=== PATIENT | female | born 1985 | race Caucasian/White ===

== ENCOUNTER → 2017-12-29 15:06 | Outpatient (CLI) | payer BC, SELFPAY ==
[2017-12-29 16:58] LABS: hCG Titer Quant., Serum 466 mIU/mL (<9 non-preg)
== END ==
PROVIDERS: Visit Provider Obstetrics & Gynecology
DX: N91.2 Amenorrhea, unspecified (principal)
CPT/HCPCS: 36415; 84702

== ENCOUNTER → 2017-12-31 14:03 | Outpatient (CLI) | payer BC, SELFPAY ==
[2017-12-31 14:48] LABS: hCG Titer Quant., Serum 1109 mIU/mL (<9 non-preg)
== END ==
PROVIDERS: Visit Provider Obstetrics & Gynecology
DX: N91.2 Amenorrhea, unspecified (principal)
CPT/HCPCS: 36415; 84702

== ENCOUNTER → 2018-01-26 14:35 | Outpatient (CLI) | payer BC, SELFPAY ==
[2018-01-26 15:50] LABS: Absolute Lymphocyte Count 1.66 X10^3/ul (0.83-4.51); Absolute Neutrophil Count 6.2 X10^3/uL (2.0-7.7); Basophil# 0.02 X10^3/uL; Basophil% 0.2 % (0-1); Eosinophil# 0.11 X10^3/uL; Eosinophils% 1.3 % (0-5); Hematocrit 40.8 % (37-47); Hemoglobin 13.6 g/dl (12.0-15.0); Lymphocyte # 1.66 X10^3/ul (4.0); Lymphocyte % 19.6 % (19-41); Mean Corp Hgb Conc 33.3 g/gl (32-36); Mean Corpuscular Hgb 30.4 pg (27.0-32.0); Mean Corpuscular Volume 91.3 fL (81-99); Mean Platelet Vol. 11.1 fl (6.2-12.0); Monocyte# 0.43 X10^3/uL; Monocyte% 5.1 % (0-10); Neutrophil # 6.21 X10^3/uL (2.7-7.7); Neutrophil % 73.6 % (47-70); Platelet Count 230 K/mm3 (150-450); RBC Distribution Width CV 12.8 % (11.6-14.6); RBC Distribution Width SD 41.6 fl (35.1-43.9); Red Blood Count 4.47 M/mm3 (4.2-5.4); White Blood Count 8.5 K/mm3 (4.4-11.0)
[2018-01-26 15:54] LABS: POSITIVE COUNT NO; POSITIVE DIFFERENTIAL NO; POSITIVE MORPHOLOGY NO
[2018-01-26 16:16] LABS: Color, Urine Straw (Yellow); Glucose, Dipstick Normal (Normal); Ketone-Dipstick Negative (Negative); Leukocyte Esterase-Dipstick Negative /ul (Negative); Nitrite-Dipstick Negative (Negative); Occult Blood-Urine Negative /ul (Negative); Protein-Dipstick Negative (Negative); Urine Bilirubin Dipstick Negative (Negative); Urine Clarity Clear (Clear); Urine Urobilinogen Normal (Normal)
[2018-01-26 16:19] LABS: Thyroid Stim Hormone (TSH) 2.24 uIU/mL (0.358-3.74)
[2018-01-26 22:01] LABS: Chlamydia Trachomatis by PCR Negative (Negative); Neisserai gonorrhoeae by PCR Negative (Negative); Probe Check PASS; Sample Adequacy Control PASS; Specimen Processing Control PASS
[2018-01-27 09:49] LABS: HIV - WCH Non-Reactive (Nonreactive); Rubella IgG 94.8 IU/mL
[2018-01-28 08:52] LABS: HEPATITIS B SURFACE AG Negative (Negative); Hep C Antibodies <0.1 s/co ratio (0.0-0.9)
[2018-01-29 05:01] LABS: Prenatal RPR NONREACTIVE (NONREACTIVE)
== END ==
PROVIDERS: Visit Provider Obstetrics & Gynecology
DX: Z34.81 Encounter for supervision of other normal pregnancy, first trimester (principal)
CPT/HCPCS: 36415; 81002; 84443; 85025; 86703; 86762; 86803; 87340; 87491; 87591

== ENCOUNTER → 2018-06-03 11:11 | Outpatient (CLI) | payer BC, SELFPAY ==
[2018-06-03 14:03] LABS: Hematocrit 31.3 % (37-47); Hemoglobin 10.3 g/dl (12.0-15.0); Mean Corp Hgb Conc 32.9 g/gl (32-36); Mean Corpuscular Hgb 31.8 pg (27.0-32.0); Mean Corpuscular Volume 96.6 fL (81-99); Mean Platelet Vol. 10.3 fl (6.2-12.0); Platelet Count 169 K/mm3 (150-450); RBC Distribution Width CV 12.6 % (11.6-14.6); RBC Distribution Width SD 42.5 fl (35.1-43.9); Red Blood Count 3.24 M/mm3 (4.2-5.4); White Blood Count 6.2 K/mm3 (4.4-11.0)
[2018-06-03 14:04] LABS: Glucose Challenge Gest 1H 50g 106 mg/dL (70-140); Scan Indicated on CBC? Y/N NO
== END ==
PROVIDERS: Visit Provider Obstetrics & Gynecology
DX: Z34.82 Encounter for supervision of other normal pregnancy, second trimester (principal)
CPT/HCPCS: 36415; 82950; 85027

== ENCOUNTER → 2018-08-05 13:33 | Outpatient (CLI) | payer BC, SELFPAY ==
[2018-08-05 14:51] LABS: Group B Strep DNA By PCR Negative (Negative); Internal Control PASS; Probe Check PASS; Specimen Processing Control PASS
== END ==
PROVIDERS: Visit Provider Obstetrics & Gynecology
DX: Z36.85 Encounter for antenatal screening for Streptococcus B (principal)
CPT/HCPCS: 87081; 87653

== ENCOUNTER 2018-08-11 10:00 | Outpatient (CLI) | payer BC, SELFPAY ==
[2018-08-11 10:29] VITALS: BMI 30.5
--- NOTE | 2018-08-11 17:58 | OB.TRI.NOTE ---
History of Present Illness Date of Service: 08/11/18 Was patient seen by the physician?: Yes Reason For Visit: FALL Date of Service: 08/11/18 Final JULIUS: 09/02/18 Final JULIUS Source: US <20 weeks Gestational age: 36 Weeks and 6 Days History of Present Illness: Lily fell at home today from bottom two stairs over a baby gate. Groin contacted top of gate. Abdomen not injured in accident. No bleeding since. Good movement. Few contractions but not strongly felt. 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 No signs of active labor or abruption. Will followup in the office or return if labor symptoms increase.
--- NOTE | 2018-08-11 18:02 | OB.TRI.HP_ITS ---
History of Present Illness Date of Service: 08/11/18 Was patient seen by the physician?: Yes Reason For Visit: FALL Date of Service: 08/11/18 Final JULIUS: 09/02/18 Final JULIUS Source: US <20 weeks Gestational age: 36 Weeks and 6 Days History of Present Illness: Lily fell at home today from bottom two stairs over a baby gate. Groin contacted top of gate. Abdomen not injured in accident. No bleeding since. Good movement. Few contractions but not strongly felt. Allergies No Known Allergies Allergy (Verified 08/11/18 10:29) Physical Exam General: Alert, Oriented x3, Cooperative, No apparent distress Lungs: Clear to auscultation, Normal air movement Abdomen: Soft, Non Tender, Gravid, Appropriate for Gestational Age Extremities:: No edema Neurological: Neuro grossly intact PRODUCT CONSULTANT: Normal external genitalia - right labia swollen but no skin tears Estimated gestational size: Appropriate for gestational size Presentation: Cephalic NST - FHR Rate Baby A Baseline: 150s Variability:: Moderate Accelerations:: 15 x 15 Decelerations:: None NST Reactive:: Yes, Appropriate for gestational age FHR Category:: Category I Uterine Activity:: irregular Impression/Plan S/P fall. No signs of active labor or abruption. Will followup in the office or return if labor symptoms increase.
== END 2018-08-11 12:35 | disposition home or self-care (01) ==
LOC: WPOUT 10:13 → WP 10:14
PROVIDERS: Referring Provider Obstetrics & Gynecology; Visit Provider Obstetrics & Gynecology
DX: O99.89 Other specified diseases and conditions complicating pregnancy, childbirth and the puerperium (principal); W18.09XA Striking against other object with subsequent fall, initial encounter; Y92.009 Unspecified place in unspecified non-institutional (private) residence as the place of occurrence of the external cause; Z3A.36 36 weeks gestation of pregnancy
CPT/HCPCS: 59025; 59050; 99218; G0378

== ENCOUNTER 2018-08-30 20:24 | Inpatient (IN) | payer BC, SELFPAY ==
[2018-08-30 21:26] VITALS: BMI 31.2
[2018-08-30] MEDS: Lactated Ringers 1,000 ML 50 ML IV (21:28)
[2018-08-30] MEDS: 0.9% Saline Lock 10 ML Syringe IV (21:53)
[2018-08-30 22:17] LABS: Hemoglobin 10.8 g/dl (12.0-15.0); Mean Corp Hgb Conc 32.7 g/gl (32-36); Mean Corpuscular Hgb 30.8 pg (27.0-32.0); Mean Platelet Vol. 10.5 fl (6.2-12.0); Platelet Count 164 K/mm3 (150-450); RBC Distribution Width CV 13.6 % (11.6-14.6); RBC Distribution Width SD 44.9 fl (35.1-43.9); Red Blood Count 3.51 M/mm3 (4.2-5.4); White Blood Count 7.7 K/mm3 (4.4-11.0)
[2018-08-30 22:23] LABS: Scan Indicated on CBC? Y/N NO
[2018-08-30] MEDS: Oxytocin 30 units/NS 500 ml 30 UNITS/500 ML IV.SOLN 334 UNITS IV (23:23)
--- NOTE | 2018-08-30 23:34 | PCM.OB.VAG ---
Vaginal Delivery Maternal Presentation: Active Labor Amniotic Membrane Rupture Type: Spontaneous Amniotic Fluid Description: Clear Final JULIUS: 09/02/18 Final JULIUS Source: US <20 weeks Gestational age: 39 Weeks and 4 Days Date of Procedure: 08/30/18 Pre-Operative Diagnosis: IUP Post-Operative Diagnosis: IUP Surgery/ Procedure Performed: Spontaneous Vaginal Delivery Type of Anesthesia: None Description of Procedure: Spontaneous vaginal delivery of a viable male with Apgars of 8/9 from an occiput anterior presentation with clear amniotic fluid and normal three-vessel placenta. No episiotomy. First-degree midline laceration repaired with 3-0 Vicryl suture. Sponge counts okay. Delivery physician: Kenny Quigley MD. Presentation: Vertex Placental Delivery Description: Spontaneous Placenta Disposition: [facility] Cord Vessel Description: 3 Vessels Cord Gases drawn per routine: ABG Cord Entanglement: None Estimated Blood Loss: 250 cc Infant A gender: Male (1 minute): 8 (5 minute): 9 Episiotomy Description: None Laceration: Midline, Perineal Extension/lac, 1st degree Medications given after delivery: IV Pitocin Complications: None
--- NOTE | 2018-08-30 23:36 | PCM.DCVAG ---
Discharge Diet: No Restrictions Discharge Activity: May Shower, May Take a Tub Bath May resume sexual activity in: 4-6 weeks Additional Activity Instructions:: Nothing in the vagina for 4-6 weeks. You may return to work/school in 6 weeks. Call your doctor if you observe: Fever of 101 or Higher, Inability to urinate, Inability to have a bowel movement, Using more than one pad per hour Additional Instructions: If you experience any of the following, contact your healthcare provider. Bleeding that soaks a pad every hour for 2 hours Unrelieved incision or abdominal pain Swelling, redness, discharge or bleeding from your incision or episiotomy site Your incision begins to separate Problems urinating (including inability to urinate or burning while urinating). Visual changes Severe headache Flu-like symptoms Pain or redness in one of both of your breasts Pain, warmth, tenderness or swelling in your legs, especially the calf area Frequent nausea and vomiting Symptoms of depression or anxiety If you experience any of the following, call 911 or go to the nearest Emergency Room. Chest pain Problems breathing Seizure activity Partial or complete paralysis of a body part, slurred speech, weakness or drooping of the face, or a sudden inability to walk or hold your balance Allergies/Adverse Reactions: Allergies No Known Allergies Allergy (Verified 08/30/18 21:27) Medications to take at Discharge Vits [Prenatabs FA] 1 tablet PO DAILY 08/11/18 Ferrous Gluconate 240 mg PO DAILY 08/30/18 Please Follow Up With: Justyna Mike MD - [phone] When: Call to make an appointment with your doctor in 6 weeks. Primary Care Physician: Care Physician,No Primary [Primary Care Provider] - Test Results: Test results from this visit will be discussed in further detail at your follow-up appointment, if applicable.
--- NOTE | 2018-08-30 23:37 | DCINST_ITS ---
Discharge Diet: No Restrictions Discharge Activity: May Shower, May Take a Tub Bath May resume sexual activity in: 4-6 weeks Additional Activity Instructions:: Nothing in the vagina for 4-6 weeks. You may return to work/school in 6 weeks. Call your doctor if you observe: Fever of 101 or Higher, Inability to urinate, Inability to have a bowel movement, Using more than one pad per hour Additional Instructions: If you experience any of the following, contact your healthcare provider. * Bleeding that soaks a pad every hour for 2 hours * Unrelieved incision or abdominal pain * Swelling, redness, discharge or bleeding from your incision or episiotomy site * Your incision begins to separate * Problems urinating (including inability to urinate or burning while urinating). * Visual changes * Severe headache * Flu-like symptoms * Pain or redness in one of both of your breasts * Pain, warmth, tenderness or swelling in your legs, especially the calf area * Frequent nausea and vomiting * Symptoms of depression or anxiety If you experience any of the following, call 911 or go to the nearest Emergency Room. * Chest pain * Problems breathing * Seizure activity * Partial or complete paralysis of a body part, slurred speech, weakness or drooping of the face, or a sudden inability to walk or hold your balance Allergies/Adverse Reactions: Allergies No Known Allergies Allergy (Verified 08/30/18 21:27) Medications to take at Discharge Vits [Prenatabs FA] 1 tablet PO DAILY 08/11/18 Ferrous Gluconate 240 mg PO DAILY 08/30/18 Please Follow Up With: Justyna Mike MD - [phone] When: Call to make an appointment with your doctor in 6 weeks. Primary Care Physician: Care Physician,No Primary [Primary Care Provider] - Test Results: Test results from this visit will be discussed in further detail at your follow- up appointment, if applicable.
[2018-08-30] MEDS: Oxytocin 30 units/NS 500 ml 30 UNITS/500 ML IV.SOLN 167 UNITS IV (23:53)
[2018-08-31] MEDS: 0.9% Saline Lock 10 ML Syringe IV (01:01)
[2018-08-31] MEDS: Acetaminophen 500 MG Tablet 1000 MG PO (01:10)
[2018-08-31 04:30] VITALS: BP 99/58; PULSE 60; RESP 16; TEMP 36.5
[2018-08-31 08:30] VITALS: BP 113/62; PULSE 69; RESP 14; TEMP 37.1; O2SAT 96
--- NOTE | 2018-08-31 08:31 | PCM.PN.OB ---
Subjective: PPD#1 Doing well. Very happy with delivery and no epidural. States intense for 6-10 cm. Breast feeding well. Minimal pain. - Physical Exam General: Alert, Oriented x3, Cooperative, No apparent distress HEENT: Atraumatic Neck: Supple Abdomen: Soft - Fundus firm NT at umbilicus Neurological: Cranial nerves II-XII grossly intact Psych/Mental Status: Normal Affect Vital Signs Temp Pulse Resp BP 97.7 F L 60 16 99/58 L 08/31/18 04:30 08/31/18 04:30 08/31/18 04:30 08/31/18 04:30 Weight: 77.5 kg Body Mass Index (BMI) 31.2 Intake and Output for Last 24 Hours 08/29/18 08/30/18 08/31/18 23:59 23:59 23:59 Intake Total 334 / 334 Output Total 300 / 300 1000 / 1000 Balance -300 / -300 -666 / -666 Laboratory Tests Past 24 Hrs 08/30/18 08/30/18 21:28 21:28 WBC 7.7 RBC 3.51 L Hgb 10.8 L Hct 33.0 L MCV 94.0 MCH 30.8 MCHC 32.7 RDW 13.6 RDW Differential 44.9 H Plt Count 164 MPV 10.5 Blood Type O POSITIVE Antibody Screen NEGATIVE Medical Necessity - Tobacco Use Smoking Status: Never smoker Assessment/Plan PPD#1 Delivered very late last pm. Plans to stay until tomorrow to allow testing.
[2018-08-31] MEDS: Ibuprofen 600 MG Tablet PO ×3 (09:15→16:02)
[2018-08-31 12:05] VITALS: BP 105/53; PULSE 74; RESP 16; TEMP 37.4
[2018-08-31 15:45] VITALS: BP 109/67; PULSE 93; RESP 14; TEMP 36.8; O2SAT 96
[2018-08-31 19:53] VITALS: BP 117/69; PULSE 94; RESP 18; TEMP 36.7
[2018-09-01 01:40] VITALS: BP 114/62; PULSE 76; RESP 16; TEMP 36.2
[2018-09-01] MEDS: Acetaminophen 500 MG Tablet 1000 MG PO (04:56)
--- NOTE | 2018-09-01 07:44 | PCM.PN.OB ---
Subjective: PPD#2 Doing well. A little tired. Nursing going well. Ready to go home today. - Physical Exam General: Alert, Oriented x3, Cooperative, No apparent distress HEENT: Atraumatic Neck: Supple Abdomen: Soft - Fundus firm NT at 1-2 cm inferior to umbilicus Neurological: Cranial nerves II-XII grossly intact Psych/Mental Status: Normal Affect Vital Signs Temp Pulse Resp BP Pulse Ox 97.2 F L 76 16 114/62 96 09/01/18 01:40 09/01/18 01:40 09/01/18 01:40 09/01/18 01:40 08/31/18 15:45 Oxygen Delivery Method Room Air Weight: 77.5 kg Body Mass Index (BMI) 31.2 Intake and Output for Last 24 Hours 08/30/18 08/31/18 09/01/18 23:59 23:59 23:59 Intake Total 334 / 334 Output Total 300 / 300 1000 / 1000 Balance -300 / -300 -666 / -666 Medical Necessity - Tobacco Use Smoking Status: Never smoker Assessment/Plan PPD#2 Stable pp. Dischg home today. RTO in 6 wk for pp check, prn sooner
[2018-09-01 07:55] VITALS: BP 117/55; PULSE 72; RESP 16; TEMP 37.1
[2018-09-01] MEDS: Ibuprofen 600 MG Tablet PO (07:56)
== END 2018-09-01 11:31 | disposition home or self-care (01) | DRG 807 ==
PROVIDERS: Admitting Provider Obstetrics & Gynecology; Referring Provider Obstetrics & Gynecology; Visit Provider Obstetrics & Gynecology
DX: O42.02 Full-term premature rupture of membranes, onset of labor within 24 hours of rupture (principal); Z37.0 Single live birth; O70.0 First degree perineal laceration during delivery; Z3A.39 39 weeks gestation of pregnancy
CPT/HCPCS: 59025; 59050; 85027; 86850; 86900; 99218; J7120; A4216; G0378

== ENCOUNTER → 2019-09-20 17:33 | Outpatient (CLI) | payer BC, SELFPAY ==
[2019-09-23 12:08] LABS: Age Gdln ACOG Testing 30-65 (.)
[2019-09-23 17:05] LABS: HPV APTIMA, High Risk Negative (Negative); HPV Reflexed? YES, CHARGE PATIENT
== END ==
PROVIDERS: Referring Provider Obstetrics & Gynecology; Visit Provider Obstetrics & Gynecology
DX: Z12.4 Encounter for screening for malignant neoplasm of cervix (principal)
CPT/HCPCS: 87624; 88175; G0145

== ENCOUNTER → 2021-05-02 15:59 | Outpatient (CLI) | payer BC, SELFPAY ==
[2021-05-02 16:24] LABS: Absolute Lymphocyte Count 1.52 X10^3/uL (0.83-4.51); Absolute Neutrophil Count 6.4 X10^3/uL (2.0-7.7); Basophil# 0.03 X10^3/uL; Basophil% 0.4 % (0-1); Eosinophil# 0.04 X10^3/uL; Eosinophils% 0.5 % (0-5); Hematocrit 42.9 % (37-47); Hemoglobin 14.1 g/dL (12.0-15.0); Lymphocyte # 1.52 X10^3/ul (0.83-4.51); Lymphocyte % 17.9 % (19-41); Mean Corp Hgb Conc 32.9 g/dL (32-36); Mean Corpuscular Hgb 30.4 pg (27.0-32.0); Mean Corpuscular Volume 92.5 fL (81-99); Mean Platelet Vol. 10.6 fl (6.2-12.0); Monocyte# 0.45 X10^3/uL; Monocyte% 5.3 % (0-10); NRBC Flagged by Analyzer 0 % (0-5); Neutrophil # 6.41 X10^3/uL (2.7-7.7); Neutrophil % 75.5 % (47-70); Platelet Count 198 K/mm3 (150-450); RBC Distribution Width CV 12.5 % (11.6-14.6); RBC Distribution Width SD 42.5 fl (35.1-43.9); Red Blood Count 4.64 M/mm3 (4.2-5.4); White Blood Count 8.5 K/mm3 (4.4-11.0)
[2021-05-03 09:01] LABS: HIV - WCH Non-Reactive (Nonreactive); Hepatitis B Surface Antigen Non-Reactive (Nonreactive); Hepatitis C Antibody Non-Reactive (Nonreactive); Rubella IgG Reactive (Nonreactive); Syphilis Antibodies Non-reactive
[2021-05-06 20:07] LABS: Chlamydia By Nucleic Acid AMP Negative (Negative)
[2021-05-06 21:52] LABS: Gonococcus By Nucleic Acid AMP Negative (Negative)
== END ==
PROVIDERS: Visit Provider Obstetrics & Gynecology
DX: Z34.81 Encounter for supervision of other normal pregnancy, first trimester (principal)
CPT/HCPCS: 36415; 85025; 86703; 86762; 86780; 86803; 87086; 87340; 87491; 87591

== ENCOUNTER 2021-05-30 09:59 | Day surgery (SDC) | payer BC, SELFPAY ==
[2021-05-30 10:43] VITALS: BP 127/80; PULSE 68; RESP 16; TEMP 37.3; O2SAT 98; BMI 26.4
--- NOTE | 2021-05-30 10:46 | PCM.HP.BLA ---
History and Physical Date of Admission: 05/30/21 Date: 05/30/2021 Name: LILY SARAVIA Age: 36 Date of : 1985 Surgical History and Physical Date: 05/30/2021 Name: LILY SARAVIA Age: 36 Date of : 1985 Lily Saravia, a 36 year old female 2 0 1 0 2, presents for suction D and C on May 30, 2021 at 11:45. -- Patient arrives with missed , for suction dilation and curettage. Asymptomatic MEDICATIONS HISTORY: Current medications prescribed by our practice are: 1. aspirin 81 mg tablet,delayed release, 1 PO QD ALLERGIES: NKDA and No Known Drug Allergies Infections - Chicken pox and COVID Illnesses - mild anxiety Accidents - no injuries of consequence Hospitalizations - Childbirth and see surgery Review of Systems: GENERAL - fatigue SKIN - Denies skin changes EYES - Denies visual changes EARS - Denies difficulty hearing NOSE - Denies nasal congestion or bleeding MOUTH - Denies sore throat or difficulty swallowing NECK - Denies pain or swelling RESPIRATORY - Denies shortness of breath or wheezing CARDIOVASCULAR - Denies palpitations or chest pain GASTROINTESTINAL - nausea GENITOURINARY - Denies dysuria, frequency of urination, incontinence of urine MUSCULOSKELETAL - Denies joint or muscle pain NEUROLOGICAL - Denies localized numbness or weakness PSYCHIATRIC - Denies depression or anxiety ENDOCRINE - Denies heat or cold intolerance, weight loss or gain HEMATO-IMMUNOLOGIC - Denies excessive bleeding with cuts SOCIAL HISTORY: Alcohol Use - RARELY Smoking - Never Diet - balanced Diet, caffeine < 2 drinks per day and water intake tries for 60-80 oz. 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 MENSTRUAL HISTORY: LMP Known?- DefiniteAmount/Duration - 6 days, Regularity - Regular, Frequency - 27-28 days, LMP - 03/18/21 PAST PREGNANCIES: Total Pregnancies - 4; Full Term Pregnancies - 2; Premature - 0; Abortions, Induced - 0; Abortions, Spontaneous - 1; Ectopics - 0; Multiple Births - 0; Living Children - 2 SURGICAL HISTORY: 1. 02/21/2016 suction D and C ; Justyna Mike M.D. - PHYSICAL EXAM BP- 132/84 Sitting, Right arm, regular cuff Weight- 141.74890 lbs Height- 62 inch BMI:25.138270228838879 CONSTITUTIONAL - NAD, well nourished, and well developed SKIN - No rash, lesions, or ulcers HEENT - Normocephalic, PERRLA, EOMI NECK - No nodes, no nuchal rigidity and thyroid normal size and texture ABDOMEN - Without hepatosplenomegaly, distention, masses, rebound, or guarding; normal bowel sounds; no hernias EXTREMITIES - No edema or calf tenderness NEUROLOGICAL - Cranial nerves II-XII grossly intact PSYCHIATRIC - A and O to time, place, person, mood and affect External Genital Vagina - non-tender without lesions Urethra/Urethral Meatus - non-tender Bladder - non-tender Vagina - vaginal harris are pink and moist without loss of rugae and no evidence of atrophy Cervix - without cervical motion tenderness and has normal size and features without evident lesions Uterus - 5-6 cm in size, mobile and nontender Adnexa - clear without masses or tenderness ASSESSMENT/PLAN: Missed 10wk, previously with FHT now with gestational sac and no embryo with FHT. Dx with missed , educated pt on findings. Educated on expectant management vs medical vs surgical. Elects for D&C, r/b/a discussed. Declines genetic screening.
[2021-05-30] MEDS: Lactated Ringers 1,000 ML 100 ML IV (10:51)
[2021-05-30 10:57] LABS: Hematocrit 41.9 % (37-47); Hemoglobin 13.8 g/dL (12.0-15.0); Mean Corp Hgb Conc 32.9 g/dL (32-36); Mean Corpuscular Hgb 30.3 pg (27.0-32.0); Mean Corpuscular Volume 92.1 fL (81-99); Platelet Count 180 K/mm3 (150-450); RBC Distribution Width CV 12.2 % (11.6-14.6); RBC Distribution Width SD 41.9 fl (35.1-43.9); Red Blood Count 4.55 M/mm3 (4.2-5.4); White Blood Count 4.5 K/mm3 (4.4-11.0)
--- NOTE | 2021-05-30 11:35 | POC_PTH ---
PATIENT: BECCA FREY LOC: [facility] U#:[id number] AGE/SX: 36/F ROOM: RE05/30/[address]: Dr. García Tipton MD : 1985 BED: DIS: 05/30/2021 SPEC #: [id number] RECD: 05/30/21 15:10 STATUS: KEIKO REKimber #: [id number] DAMIEN: 05/30/21 11:[address]: García Tipton DEPT: SURGICAL PATHOLOGY RECD BY: Pau Awan ENTERED: 05/31/21 07:43 SP TYPE: PROD CONC OTHR DR: No Primary Care Phys Tissues: Product of conception, NOS Procedures: Surgery Specimen Level IV HEADER OPERATION: Suction dilation and curettage PRE-OP DIAGNOSIS: Missed TISSUE SUBMITTED: Products of conception MICROSCOPIC DIAGNOSIS Products of conception: [place]idua, gestational endometrium and immature chorionic villi (products of conception). CHAN:holly 06/03/2021 MICROSCOPIC DESCRIPTION Slides are reviewed. GROSS DESCRIPTION Received in fixative is one container labeled with the patient's name and designated products of conception. The specimen consists of multiple fragments of pink hemorrhagic soft tissue that in aggregate measure 7 x 7 x 2 cm. tissue is not identified. Medical Parasitologist tissue is submitted in three cassettes. / SJ:holly 05/31/21 TC:5 CPT: 59253
--- NOTE | 2021-05-30 14:04 | PCM.DC ---
Discharge Instructions Diet Discharge Diet: No restrictions Activity Discharge Activity: Return to Normal Activity, May Drive and May Shower May resume sexual activity in: 4-6 weeks Weight Bearing Status: Weight bearing as tolerated Dressing / Incision Call your doctor if your incision/area has: Continuous Slow Oozing and Foul Smelling Discharge Call your doctor if you observe: Fever of 101 or Higher, Shortness of breath and Chest pain Follow Up Care Please Follow Up With: García Tipton MD When: 2 weeks postoperatively Test Results: Test results from this visit will be discussed in further detail at your follow-up appointment, if applicable. Discharge Plan Admission Attending Provider: García Tipton Primary Care Provider: Care Physician,Michelle Primary Discharge Orders/Prescriptions Prescriptions: No Action Prenatabs FA 1 TABLET tablet 1 tab PO DAILY RF: 0 Disposition Discharge Orders: Discharge Patient (Routine); Ordered 05/30/21 Ordered By: Dr. García Tipton
--- NOTE | 2021-05-30 14:05 | PCM.OPRPT ---
Report of Operation Date of Procedure: 05/30/21 Pre-Operative Diagnosis: Missed Post-Operative Diagnosis: Missed Surgery/Procedure Performed:: Suction dilation curettage Description of Surgical Findings:: Surgeon: García Tipton MD Anesthesia: MAC EBL: 25 cc Urine output: Not measured IV fluids: 250 cc Complications: None Specimen: Products of conception Findings: Closed cervix. 7 mm curved suction curette used. Consent: Patient with missed desires suction dilation curettage. Patient understands the risk of the procedure include but are not limited to visceral or vascular injury, prolonged hospitalization, blood loss and need for transfusion, reoperation. Patient states understanding and wishes to proceed. All questions were answered and consent was signed. Procedure: Patient was brought back to the OR where MAC anesthesia was found to be adequate. 200 mg of doxycycline were given for infection prophylaxis. Patient was prepared and draped in a dorsal lithotomy position with yellowfin stirrups. A weighted speculum is placed in the posterior aspect of the vagina and cervical dilators were used to dilate the cervix. 7 mm suction curved curette was used under direct visualization. Moderate amount of tissue was obtained and sent to pathology. Good hemostasis was noted. All counts correct x2. Patient tolerated the procedure well and was brought to recovery in a stable condition.
[2021-05-30 14:10] VITALS: BP 115/72; BP 127/80; PULSE 82; RESP 16; TEMP 36.3; O2SAT 100
[2021-05-30 14:15] VITALS: BP 118/67; BP 127/80; PULSE 85; RESP 16; O2SAT 100
[2021-05-30 14:20] VITALS: BP 118/74; BP 127/80; PULSE 83; RESP 16; O2SAT 100
[2021-05-30 14:25] VITALS: BP 117/68; BP 127/80; PULSE 68; RESP 16; TEMP 36.8; O2SAT 100
[2021-05-30 15:18] VITALS: BP 108/55; BP 127/80; PULSE 60; RESP 16; TEMP 36.7; O2SAT 100
== END 2021-05-30 15:22 | disposition home or self-care (01) ==
LOC: SDC 10:00 → AC 10:02
PROVIDERS: Referring Provider Obstetrics & Gynecology; Visit Provider Obstetrics & Gynecology
PROC: (CPT 59820; principal; 2021-05-30 11:20)
DX: O02.1 Missed abortion (principal); Z3A.10 10 weeks gestation of pregnancy
CPT/HCPCS: 59820; 85027; 86850; 86900; 86901; 88305; J7120; J2405

== ENCOUNTER 2023-10-13 19:35 | Emergency (ER) | payer BC, SELFPAY ==
[2023-10-13 19:36] VITALS: BP 138/84; PULSE 78; RESP 15; TEMP 36.3; O2SAT 100; BMI 25.6
--- NOTE | 2023-10-13 21:15 | CT_ITS ---
INDICATION: left tmj -- ? subluxation/dislocation EXAMINATION: CT FACIAL BONES - CT Maxillofacial W/O Contrast Injection TECHNIQUE: Helically acquired images were obtained of the facial bones. A radiation dose optimization technique was used for this scan. IV Contrast dosage and agent: None. RADIATION DOSAGE (If Supplied By Facility): CTDIvol = ( 25.01 ) mGy, DLP = ( 511.14 ) mGycm COMPARISON: FINDINGS: SOFT TISSUES: No focal subcutaneous swelling. No discrete fluid collections. VISUALIZED PARANASAL SINUSES: Clear. VISUALIZED MASTOID AIR CELLS: Clear. FACIAL BONES, MANDIBLE AND TMJs: No displaced facial bone fracture. No lytic or blastic abnormality. VISUALIZED DENTITION: No periodontal osseous erosion. Normal TMJs bilaterally. ORBITAL CONTENTS: Both globes, extraocular muscles and retrobulbar fat appear unremarkable. CT/Sinus/Facial Bone IMPRESSION: No acute bony injury of the facial bones. Electronically Signed: Sam Goins DO at 21:32 EST Reading Location ID and State: [facility] / [place] Tel [phone], Service support ,
--- OUTSIDE RECORDS SUMMARY | 2023-10-13 21:28 | XMS RPT_ITS | CCD ---
Author Name Unknown Address [address] [place] [address] Organization [facility] Care Team Providers Care Personal Lines Sales Rep Name Role Phone Nunu Dietz Unavailable Unavailable Brody Clifton Unavailable Unavailable Required, No Pcp Unavailable Unavailable Mejia Barrientos Unavailable Unavailable Ms. Mejia Barrientos Attending Ilda Barrientos, Ms. Mejia Booker Attending Ilda ramirez Allergies Allergy Classification Reported Allergen(s) Allergy Type Date of Onset Reaction(s) Facility (1 source) No Known Medication Allergies; Translations: [No Known Medication Allergies] Propensity to adverse reactions to drug (disorder) [facility] Repository Medications Current Medications Medication Drug Class(es) Dates Sig (Normalized) Sig (Original) sulfamethoxazole 800 mg / trimethoprim 160 mg oral tablet (1 source) Dihydrofolate Reductase Inhibitor Antibacterial, Sulfonamide Antimicrobial Start: 05-09-2023 End: 05-15-2023 take 1 tablet by mouth twice daily Bactrim DS 800 mg-160 mg oral tablet ; 1 tab(s) orally 2 times a day Quantity: 14 Refills: 0 Ordered: 09-May-2023 Mejia Barrientos Start: 09-May-2023 End: 15-May-2023 Generic Substitution Allowed Comments: Avoid prolonged or excessive exposure to direct and/or artificial sunlight while taking this medication.Finish all this medication unless otherwise directed by prescriber.Medica tion should be taken with plenty of water. Problems Problem Classification Problem Date Documented Da te Episodic/Chronic Other connective tissue disease (4 sources) Pain in left finger(s); Translations: [Pain in left finger(s)] Onset: 05-09-2023 Episodic Other non-traumatic joint disorders (1 source) Pain in joints of left hand; Translations: [Pain in joints of left hand] Onset: 05-09-2023 Episodic Other skin disorders (1 source) Localized swelling, mass and lump, left upper limb; Translations: [Localized swelling, mass and lump, left upper limb] Onset: 05-09-2023 Episodic Unclassified (2 sources) L HAND 1 ST FINGER PAIN 05-09-2023 Results Test Name Value Interpretation Reference Range Facil ity Vital Signs Date Time Vital Sign Value Performing Clinician Facility 05-09-2023 12:090400 Body height 157.4 cm No Pcp Required [facility] 05-09-2023 12:09-0400 Body temperature 97.88 [degF] No Pcp Required [facility] 05-09-2023 12:09-0400 Diastolic blood pressure 80 mm[Hg] No Pcp Required [facility] 05-09-2023 12:09-0400 Heart rate 95 /min No Pcp Required [facility] 05-09-2023 12:090400 Respiratory rate 16 /min No Pcp Required [facility] 05-09-2023 12:09-0400 SaO2% (BldA) [Mass fraction] 98 % No Pcp Required [facility] 05-09-2023 12:09-0400 Systolic blood pressure 134 mm[Hg] No Pcp Required [facility] Encounters Encounter Date Encounter Type Care Provider Facility Start: 05-09-2023 [id number] Start: 05-09-2023 End: 05-09-2023 Emergency department patient visit Mejia Demetrisagustinafrancoise [facility] Start: 07-27-2018 Patient encounter Nunu pinto:[facility] Payers Date Payer Category Payer Private Health Insurance 1985 Unknown [id number] 1985 Unknown [id number] 1985 Unknown [id number] Unknown ANTHEM\ANTHEM HMP Unknown [id number] Social History Date Type Detail Facility [facility] Tobacco smoking consumption unknown [facility] Summary Purpose Family History No Family History Records FoundNo Family History Records Found Advance Directives No Advanced Directives Records FoundNo Advanced Directives Records Found Additional Source Comments INFORMATION SOURCE (unrecogn ized section and content) DATE CREATED AUTHOR AUTHOR'S YOUSIF TERRELL 05/15/2023 [facility] <item> Privacy Markings (unrecogniz ed section and content) Section Author: Perla Kern PROHIBITION ON REDISCLOSURE OF CONFIDENTIAL INFORMATION This notice accompanies a disclosure of information concerning a client made to you with the consent of such client. FOR RECORDS PERTAINING TO PATIENTS WHO ARE OR HAVE BEEN ENROLLED IN A CHEMICAL DEPENDENCY/SUBSTANCEABUSE PROGRAM, SOME INFORMATION MAY BE OMITTED. This clinical summary was aggregated from multiple sources. Caution should be exercised in using it in the provision of clinical care. This summary normalizes information from multiple sources, and as a consequence, information in this document may materially change the coding, format and clinical context of patient data. In addition, data may be omitted in some cases. CLINICAL DECISIONS SHOULD BE BASED ON THE PRIMARY CLINICAL RECORDS. [facility] [employer] [facility]. provides no warranty or guarantee of the accuracy or completeness of information in this document.
--- NOTE | 2023-10-13 21:59 | EX.ED.DYSGE1 ---
HPI History of Present Illness Chief Complaint: Other, Pain/Inj Informant: patient and spouse/S.O. Narrative Narrative: Presents to the ED concern for dislocation of her left TMJ region. She was eating hamburger when she bent down and felt to go out of place. She is able to close her mouth however still feels it is malaligned. She follows a specialist for her TMJ. States 10 years ago had similar symptoms where she went to the ER, states she ended up on muscle relaxers. She followed up with dental, there was no specific procedures performed, she was provided initial mouthguard which made her jaw more malaligned. She ended up with braces for improved alignment. She called her dentist this evening was told to go to ER here for evaluation. Reports feels tightness at the TMJ region on the left side. Prior similar symptoms: Yes PFSH PFSH Medical History Non-smoker Wears contact lenses Wears glasses Home Medications vits,calcium no.78-iron fumarate-folic acid 29 mg-1 mg tablet (Prenatabs FA) 1 tab PO DAILY 08/11/18 [History Last Taken 08/30/18] diazepam 5 mg tablet (Valium) 5 mg PO TID PRN muscle spasm #20 tabs 10/13/23 [Rx Last Taken Unknown] Allergy/AdvReac Type Severity Reaction Status Date / Time No Known Allergies Allergy Verified 10/13/23 19:39 Surgical History Hx of dilation and curettage Social History Smoking Status: Never smoker ROS ROS ED Constitutional Constitutional ED: Denies chills, fever(s) or sweats Eyes Eyes: Denies change in vision ENT ENT ED: Reports other Details: Jaw discomfort ; Denies dysphagia or sore throat Cardiovascular Cardiovascular: Denies chest pain, leg edema, palpitations or racing heartbeat Respiratory/Chest Respiratory/Chest: Denies cough, dyspnea or dyspnea on exertion Gastrointestinal Gastrointestinal: Denies abdominal pain, diarrhea, nausea or vomiting Genitourinary Genitourinary ED: Denies dysuria, hematuria or urinary frequency Musculoskeletal Musculoskeletal: Denies back pain, extremity pain or neck pain Integumentary Denies rash or wounds Neurologic Neurologic: Denies headache(s), paresthesias or weakness EXAM Physical Exam Const Vital Signs: 10/13/23 19:36 10/13/23 20:49 Temperature 97.4 F L Temperature Source Temporal Pulse Rate 78 Respiratory Rate 15 Respiratory Effort Normal Respiratory Pattern Normal Blood Pressure 138/84 H Blood Pressure Mean 102 Pulse Ox 100 Oxygen Delivery Method Room Air Positive well nourished and well developed General Appearance ED: well developed and NAD HEENT Reports moist mucous membranes HEENT Narrative: Patient was able to close her mouth, she moves her jaw left and right with no difficulties. Tenderness at the left TMJ no deformities noted. normocephalic and atraumatic Eyes PERRL, EOMs intact bilaterally and conjunctivae normal General Eye ED: Yes normal appearance of both eyes Neck no lymphadenopathy and supple General: Negative for tenderness Chest Wall Chest: Negative for tenderness Resp normal respiratory effort and normal air movement Effort and Inspection: symmetric chest movement; Negative for respiratory distress Cardio regular rate, regular rhythm and no murmurs Peripheral Pulses: pulses 2+ throughout GI normal to inspection, nondistended, normoactive bowel sounds and non-tender Palpation: Negative for guarding or rebound tenderness present Back/Spine no CVA tenderness and no thoracic nor lumbar tenderness Extremity normal to inspection General Extremety ED: Negative for edema or tenderness General Extremity: Negative for edema Neuro oriented x3 and no sensory deficits noted Sensorium / Orientation: awake and alert Skin no rashes or lesions noted and no wounds MDM MDM MDM Narrative Medical decision making narrative: Interventions / MDM: Differential diagnosis: Left TMJ syndrome Diagnosis considered but do not suspect: Dislocation however imaging negative My EKG interpretation: N/A Imaging independently reviewed and interpreted by myself: N/A External documents reviewed: N/A Test considered but not ordered:N/A ED course: Patient clinically did not appear dislocated as she can close her mouth. With her reported history concerns, did attempt maneuvers with gag reflex with a tongue blade, syringe was used to bite down on the back of her left jaw. There is no change. She was sent for CT imaging for further evaluation. Results of CT shows no fractures or dislocations. I showed images to the patient. She reports tightness discomfort, she is previously put on muscle relaxers. She is ordered for meds to beds with Valium to use. Image studies placed on a disc for her to follow-up with her specialist. She is reassured. All questions were answered. Re-evaluation: stable Disposition discussed with patient/family/significant other: Patient and significant other Case discussed with consulting clinician: N/A This note was generated with [employer] dictation software. It may contain incorrect words, spelling, and punctuation that were not noted in checking the note before signing. Radiography Diagnostic Testing: Clinical Impression(s) from Imaging Studies Facial/Sinus 10/13/23 21:15 IMPRESSION: No acute bony injury of the facial bones. Electronically Signed: Sam Goins DO at 21:32 EST Reading Location ID and State: [facility] / [place] Tel [phone], Service support , Discharge Plan Triage Chief Complaint: Other, Pain/Inj ED Provider: Tank Jama Dx/Rx/DC Orders Clinical Impression: TMJ tenderness, left Instructions: ED TMJ Syndrome Prescriptions: New diazepam [Valium] 5 mg tablet 5 mg PO TID PRN (Reason: muscle spasm) Qty: 20 0RF No Action Prenatabs FA 1 TABLET tablet 1 tab PO DAILY Primary Care Provider: Care Physician,No Primary Referrals: Care Physician,No Primary [Primary Care Provider] - Activity Restrictions/Additional Instructions: CT scan of your facial bones shows no fracture or any dislocation of your TMJ. Use muscle relaxer as prescribed. Follow-up with your specialist. Disposition Disposition: Home, Self Care Discharge Date/Time: 10/13/23 22:39
== END 2023-10-13 22:39 | disposition home or self-care (01) ==
PROVIDERS: Emergency Provider Emergency Medicine; Visit Provider Emergency Medicine
DX: M26.622 Arthralgia of left temporomandibular joint (principal)
CPT/HCPCS: 70486; 99282